=== PATIENT | female | born 1995 | race Caucasian/White ===

== ENCOUNTER 2016-09-17 22:59 | Inpatient (IN) | payer SELFPAY ==
[~2016-09-17] VITALS: Ht 172.7 cm; Wt 61.1 kg
[2016-09-17] MEDS ORDERED: MORPHINE SULFATE 4 MG/ML, 1ML ONE ×2 (23:07→23:40)
[2016-09-17] MEDS ORDERED: ONDANSETRON 2MG/ML, 2ML ONE (23:07)
[2016-09-17] MEDS: MORPHINE SULFATE 4 MG/ML, 1ML IVPush PRN ×2 (23:23→23:42)
[2016-09-17] MEDS ORDERED: ONDANSETRON 2MG/ML, 2ML IVPush ONE (23:30)
[2016-09-17] MEDS ORDERED: SODIUM CHLORIDE 0.9% 1,000ML IVBOLUS ONE (23:30)
[2016-09-17] MEDS ORDERED: PLEASE ENTER ALLERGIES MC SCH ×2 (23:45)
[2016-09-17 23:46] LABS: ASPARTATE AMINO TRANSFERASE 24 U/L (15-37); BLOOD UREA NITROGEN 20 mg/dL (7-18)
[2016-09-18] MEDS ORDERED: HYDROmorphone 1 MG/ML, 1ML ONE ×2 (00:38→02:26)
[2016-09-18] MEDS: HYDROmorphone 1 MG/ML, 1ML IVPush PRN ×2 (00:41→02:48)
[2016-09-18] MEDS ORDERED: SODIUM CHLORIDE 0.9% 1,000ML IVBOLUS ONE (01:00)
[2016-09-18] MEDS ORDERED: SODIUM CHLORIDE 0.9% 1,000 ML IV ONE (02:13)
[2016-09-18] MEDS ORDERED: ONDANSETRON 2MG/ML, 2ML ONE (02:26)
[2016-09-18] MEDS ORDERED: HYDROmorphone 1 MG/ML, 1ML IVPush PRN (02:30)
[2016-09-18] MEDS ORDERED: ONDANSETRON 2MG/ML, 2ML IVPush PRN (02:30)
[2016-09-18] MEDS: SODIUM CHLORIDE 0.9% 1,000 ML IV SCH ×3 (02:43→20:01)
[2016-09-18] MEDS ORDERED: ONDANSETRON 2MG/ML, 2ML IVP PRN (03:00)
[2016-09-18] MEDS ORDERED: PANT40TA3 PO (03:02)
[2016-09-18] MEDS ORDERED: BUDE10.22 INH (03:02)
[2016-09-18] MEDS ORDERED: SERT25TA3 PO (03:02)
[2016-09-18] MEDS ORDERED: ALBU90AE INH (03:02)
[2016-09-18] MEDS ORDERED: ALBUTEROL SULFATE 2.5 MG/3 ML NPPB PRN (04:00)
[2016-09-18 04:33] VITALS: BP 149/88
[2016-09-18] MEDS: HYDROmorphone 1 MG/ML, 1ML IV PRN ×8 (04:53→23:31)
[2016-09-18] MEDS: MEROPENEM 1 GM in SODIUM CHLORIDE 0.9% 100 ML IV SCH ×2 (05:35→20:01)
[2016-09-18] MEDS: ENOXAPARIN 40 MG/0.4 ML SQ SCH (05:36)
[2016-09-18 06:25] LABS: BLOOD UREA NITROGEN 17 mg/dL (7-18)
[2016-09-18 06:34] LABS: ASPARTATE AMINO TRANSFERASE 13 U/L (15-37)
[2016-09-18 08:30] VITALS: BP 115/70
[2016-09-18] MEDS: PANTOPRAZOLE 40 MG IV IVP SCH (08:44)
[2016-09-18] MEDS: FLUTICASONE/VILANTEROL 100-25MCG/INH INH SCH (10:14)
[2016-09-18 13:16] LABS: DAU SCREEN DISCLAIMER
[2016-09-18 14:10] VITALS: BP 111/74
[2016-09-18 19:28] VITALS: BP 123/77
[2016-09-18] MEDS: SERTRALINE 50MG TABLET PO SCH (20:01)
[2016-09-19 01:53] VITALS: BP 127/81
[2016-09-19] MEDS: HYDROmorphone 1 MG/ML, 1ML IV PRN ×7 (02:37→21:40)
[2016-09-19 05:32] LABS: BLOOD UREA NITROGEN 12 mg/dL (7-18)
[2016-09-19 05:37] LABS: ASPARTATE AMINO TRANSFERASE 17 U/L (15-37)
[2016-09-19] MEDS: SODIUM CHLORIDE 0.9% 1,000 ML IV SCH ×3 (06:04→23:08)
[2016-09-19] MEDS: MEROPENEM 1 GM in SODIUM CHLORIDE 0.9% 100 ML IV SCH ×3 (06:05→21:40)
[2016-09-19] MEDS: ENOXAPARIN 40 MG/0.4 ML SQ SCH (06:12)
[2016-09-19 08:01] VITALS: BP 128/70
[2016-09-19] MEDS ORDERED: HYDROmorphone 1 MG/ML, 1ML IV PRN (09:00)
[2016-09-19] MEDS: FLUTICASONE/VILANTEROL 100-25MCG/INH INH SCH (09:27)
[2016-09-19] MEDS: SERTRALINE 50MG TABLET PO SCH (09:27)
[2016-09-19] MEDS: PANTOPRAZOLE 40 MG IV IVP SCH (09:27)
[2016-09-19 12:57] VITALS: BP 121/78
[2016-09-19 19:41] VITALS: BP 132/80
[2016-09-20 00:30] VITALS: BP 126/82
[2016-09-20] MEDS: HYDROmorphone 1 MG/ML, 1ML IV PRN ×8 (00:44→23:29)
[2016-09-20] MEDS: MEROPENEM 1 GM in SODIUM CHLORIDE 0.9% 100 ML IV SCH ×2 (05:31→13:40)
[2016-09-20] MEDS: ENOXAPARIN 40 MG/0.4 ML SQ SCH (05:31)
[2016-09-20 06:00] LABS: BLOOD UREA NITROGEN 5 mg/dL (7-18)
[2016-09-20 07:50] VITALS: BP 136/76
[2016-09-20] MEDS: PANTOPRAZOLE 40 MG IV IVP SCH (09:09)
[2016-09-20] MEDS: SERTRALINE 50MG TABLET PO SCH (09:09)
[2016-09-20] MEDS: SODIUM CHLORIDE 0.9% 1,000 ML IV SCH ×2 (09:09→18:32)
[2016-09-20] MEDS: FLUTICASONE/VILANTEROL 100-25MCG/INH INH SCH (09:10)
[2016-09-20 14:55] VITALS: BP 125/78
[2016-09-20 18:52] VITALS: BP 136/91
[2016-09-20] MEDS: KETOROLAC 30 MG/1 ML IVPush PRN (22:49)
[2016-09-21 01:56] VITALS: BP 116/73
[2016-09-21] MEDS: SODIUM CHLORIDE 0.9% 1,000 ML IV SCH ×4 (03:42→23:01)
[2016-09-21] MEDS: HYDROmorphone 1 MG/ML, 1ML IV PRN ×7 (03:43→23:01)
[2016-09-21] MEDS: KETOROLAC 30 MG/1 ML IVPush PRN ×4 (04:54→23:39)
[2016-09-21] MEDS: ENOXAPARIN 40 MG/0.4 ML SQ SCH (05:17)
[2016-09-21 08:06] VITALS: BP 109/67
[2016-09-21] MEDS: SERTRALINE 50MG TABLET PO SCH (08:35)
[2016-09-21] MEDS: PANTOPRAZOLE 40 MG IV IVP SCH (08:35)
[2016-09-21] MEDS: FLUTICASONE/VILANTEROL 100-25MCG/INH INH SCH (08:35)
[2016-09-21 14:00] VITALS: BP 124/79
[2016-09-21] MEDS: OxyconTIN ER 10 MG TAB.ER PO SCH (17:40)
[2016-09-21 18:21] LABS: IS PT STATUS REG ER OR PRE ER? NO
[2016-09-21 21:26] VITALS: BP 129/81
[2016-09-22 01:44] VITALS: BP 127/75
[2016-09-22] MEDS: HYDROmorphone 1 MG/ML, 1ML IV PRN ×4 (02:24→21:11)
[2016-09-22] MEDS: OxyconTIN ER 10 MG TAB.ER PO SCH ×2 (05:29→17:02)
[2016-09-22] MEDS: SODIUM CHLORIDE 0.9% 1,000 ML IV SCH ×3 (05:29→20:10)
[2016-09-22] MEDS: ENOXAPARIN 40 MG/0.4 ML SQ SCH (05:50)
[2016-09-22] MEDS: KETOROLAC 30 MG/1 ML IVPush PRN ×2 (05:50→12:37)
[2016-09-22 07:17] VITALS: BP 110/69
[2016-09-22] MEDS: PANTOPRAZOLE 40 MG IV IVP SCH (09:44)
[2016-09-22] MEDS: SERTRALINE 50MG TABLET PO SCH (09:44)
[2016-09-22] MEDS: FLUTICASONE/VILANTEROL 100-25MCG/INH INH SCH (09:44)
[2016-09-22 12:12] VITALS: BP 127/78
[2016-09-22] MEDS: OXYcodone/APAP 5/325MG TABLET PO PRN ×2 (13:36→20:10)
[2016-09-22 20:33] VITALS: BP 121/81
[2016-09-23] MEDS: HYDROmorphone 1 MG/ML, 1ML IV PRN (00:14)
[2016-09-23] MEDS: SODIUM CHLORIDE 0.9% 1,000 ML IV SCH ×4 (02:00→20:02)
[2016-09-23] MEDS: OXYcodone/APAP 5/325MG TABLET PO PRN ×3 (02:13→20:02)
[2016-09-23 03:40] VITALS: BP 107/69
[2016-09-23] MEDS: OxyconTIN ER 10 MG TAB.ER PO SCH ×2 (04:51→17:36)
[2016-09-23] MEDS: ENOXAPARIN 40 MG/0.4 ML SQ SCH (04:52)
[2016-09-23] MEDS ORDERED: HYDROmorphone 1 MG/ML, 1ML IV PRN (08:30)
[2016-09-23] MEDS: SERTRALINE 50MG TABLET PO SCH (08:36)
[2016-09-23] MEDS: PANTOPROZOLE 40MG TABLET PO SCH (08:36)
[2016-09-23] MEDS: FLUTICASONE/VILANTEROL 100-25MCG/INH INH SCH (08:36)
[2016-09-23 10:50] VITALS: BP 116/76
[2016-09-23 13:45] VITALS: BP 123/83
[2016-09-23 20:00] VITALS: BP 126/78
[2016-09-24] MEDS: SODIUM CHLORIDE 0.9% 1,000 ML IV SCH ×2 (03:35→17:00)
[2016-09-24 04:00] VITALS: BP 126/79
[2016-09-24] MEDS: OXYcodone/APAP 5/325MG TABLET PO PRN ×3 (04:04→17:09)
[2016-09-24] MEDS: OxyconTIN ER 10 MG TAB.ER PO SCH ×2 (05:05→17:21)
[2016-09-24] MEDS: ENOXAPARIN 40 MG/0.4 ML SQ SCH (05:06)
[2016-09-24] MEDS: FLUTICASONE/VILANTEROL 100-25MCG/INH INH SCH (08:51)
[2016-09-24] MEDS: PANTOPROZOLE 40MG TABLET PO SCH (08:51)
[2016-09-24] MEDS: SENNA/DOCUSATE TABLET PO SCH ×3 (08:52→09:00)
[2016-09-24] MEDS: SERTRALINE 50MG TABLET PO SCH (08:52)
[2016-09-24 08:55] VITALS: BP 125/79
[2016-09-24 13:34] VITALS: BP 117/75
[2016-09-24] MEDS ORDERED: OXYC1TAB7 PO (18:10)
[2016-09-24 19:09] LABS: BLOOD UREA NITROGEN 3 mg/dL (7-18)
[2016-09-24] MEDS ORDERED: POTASSIUM CHLORIDE 20 MEQ TAB.ER.PRT PO ONE (19:30)
== END 2016-09-24 22:58 | disposition home or self-care (01) | DRG 439 ==
LOC: ED 09-18 01:01 → EDIP 09-18 02:14 → SUATTDRO 09-18 02:39 → 4WST 09-18 04:27
PROVIDERS: ADMIT Internal Medicine; ATTEND Internal Medicine
DX: K85.90 Acute pancreatitis without necrosis or infection, unspecified (principal); K56.7 Ileus, unspecified; D75.89 Other specified diseases of blood and blood-forming organs; G40.909 Epilepsy, unspecified, not intractable, without status epilepticus; J45.20 Mild intermittent asthma, uncomplicated; K21.9 Gastro-esophageal reflux disease without esophagitis; N83.209 Unspecified ovarian cyst, unspecified side; Z88.1 Allergy status to other antibiotic agents; Z79.899 Other long term (current) drug therapy; Z88.0 Allergy status to penicillin; Z88.2 Allergy status to sulfonamides
CPT/HCPCS: 36415; 71010; 74177; 76700; 76856; 80048; 80053; 80061; 80307; 81003; 82962; 83690; 83735; 84100; 84439; 84443; 84484; 84703; 85025; 87324; 96361; 96374; 96375; J1170; J1650; J1885; J2185; J2405; C8901; C9113; J7030